=== PATIENT | female | born 1995 | race Caucasian/White ===

== ENCOUNTER 2022-09-23 10:57 | Day surgery (SDC) | payer MEDICAID, SELFPAY ==
[2022-09-23] VITALS (9 sets, daily range): BP systolic 90–116; BP diastolic 63–75; PULSE 60–85; RESP 15–18; TEMP 36.1–36.6; O2SAT 97–100; BMI 24.5
--- NOTE | 2022-09-23 | POC_PTH ---
PATIENT: JUAN MANUEL RUST LOC: [facility] – [place] U#:[id number] AGE/SX: 27/F ROOM: RE09/23/[address]: Dr. Geovani Rocha MD : 1995 BED: DIS: 09/23/2022 SPEC #: [id number] RECD: 09/23/22 14:24 STATUS: SCHUYLER RESaud #: [id number] MACY: 09/23/22 00:[address]: Geovani Rocha DEPT: SURGICAL PATHOLOGY RECD BY: Soy Manjarrez ENTERED: 09/24/22 09:09 SP TYPE: PROD CONC OTHR DR: No Primary Care Phys Tissues: Product of conception, NOS Procedures: Surgery Specimen Level IV HEADER OPERATION: Suction dilation and curettage PRE-OP DIAGNOSIS: Missed TISSUE SUBMITTED: Products of conception MICROSCOPIC DIAGNOSIS Endometrium, curettage: Chorionic villi, decidualized stroma and trophoblastic cells consistent with products of conception. AM:matthew 09/25/2022 MICROSCOPIC DESCRIPTION Slides are reviewed. GROSS DESCRIPTION Received in fixative is one container labeled with the patient's name and designated products of conception. The specimen consists of multiple irregular fragments of pink soft tissue that in aggregate measure 7 x 7 x 2 cm. No tissue is identified. Manufacturer'S Service Representative tissue is submitted in two cassettes. / SJ:rg 09/24/2022 TC:5 CPT:
--- NOTE | 2022-09-23 11:24 | PCM.HP.BLA ---
History and Physical Date of Admission: 09/23/22 Chief complaint: Missed History present illness: 27-year-old arrives for suction dilation curettage for missed . No medical changes. All questions answered and consent signed Obstetric history: G2, P1 with a history of 1 vaginal delivery and as above 1 missed Past medical history: None Medications: None Past surgical history: None Allergies: No known drug allergies Social history: Denies smoking, alcohol, drug use Family history: Denies history DVT or PE Review of systems: Besides above pertinent positives a full review of systems was performed and found to be negative Physical exam: Vitals: Pending General: Normal-appearing no acute distress HEENT: Normocephalic/atraumatic no cervical lymphadenopathy Cardiac/respiratory: No use accessory muscles, nonlabored breathing Abdomen: Soft, nontender, nondistended Extremities: No peripheral edema normal peripheral pulses Psych: Normal affect normal demeanor nonpressured speech Assessment plan: 19-year-old arrives for suction dilation curettage for missed . Patient or stands risk of the procedure include but are not limited to visceral or vascular injury, prolonged hospitalization, blood loss and need for transfusion, reoperation. Patient state understanding wish to proceed. All questions were answered and consent was signed.
[2022-09-23 11:41] LABS: Hematocrit 37.8 % (37-47); Hemoglobin 12.3 g/dL (12.0-15.0); Mean Corp Hgb Conc 32.5 g/dL (32-36); Mean Corpuscular Hgb 30.1 pg (27.0-32.0); Mean Corpuscular Volume 92.6 fL (81-99); Mean Platelet Vol. 9.7 fl (6.2-12.0); Platelet Count 227 K/mm3 (150-450); RBC Distribution Width CV 13.2 % (11.6-14.6); RBC Distribution Width SD 44.8 fl (35.1-43.9); Red Blood Count 4.08 M/mm3 (4.2-5.4); White Blood Count 8.2 K/mm3 (4.4-11.0)
[2022-09-23] MEDS: Lactated Ringers 1,000 ML 15 ML IV (11:46)
--- NOTE | 2022-09-23 12:54 | DCINST_ITS ---
Discharge Instructions Diet Discharge Diet: No restrictions Activity Discharge Activity: Return to Normal Activity and May Shower May resume sexual activity in: 4-6 weeks Weight Bearing Status: Weight bearing as tolerated Dressing / Incision Call your doctor if your incision/area has: Continuous Slow Oozing and Foul Smelling Discharge Call your doctor if you observe: Fever of 101 or Higher, Shortness of breath and Chest pain Follow Up Care Please Follow Up With: Geovani Rocha MD When: 2 weeks postoperatively Test Results: Test results from this visit will be discussed in further detail at your follow- up appointment, if applicable. Discharge Plan Admission Attending Provider: Geovani Rocha Primary Care Provider: Care Physician,Eloisa Primary Discharge Orders/Prescriptions Prescriptions: No Action NK Referrals / Follow Up: Care Physician,No Primary [Primary Care Provider] - Disposition Disposition (needs filled in before D/C Order can be placed): Home, Self Care
--- NOTE | 2022-09-23 12:55 | OP.PCM_ITS ---
Report of Operation Date of Procedure: 09/23/22 Pre-Operative Diagnosis: Missed Post-Operative Diagnosis: Missed Surgery/Procedure Performed:: Suction dilation and curettage Description of Surgical Findings:: Surgeon: Geovani Rocha MD Anesthesia: MAC EBL: 25 cc Urine output: 200 cc IV fluids: 500 cc none complications: None Specimen: Products of conception Findings: Cervix with no dilation and no bleeding. 7 mm suction curettage used Consent: Patient with missed elects for suction dilation and curettage. Patient understands risk of the procedure include but are not limited to visceral or vascular injury, prolonged hospitalization, blood loss need for transfusion, reoperation. Patient state understanding wish to proceed. All questions were answered and consent was signed. Procedure: Patient was brought back to the OR where MAC anesthesia was found to be adequate. 200 mg of doxycycline were given for infection prophylaxis. Patient was prepared and draped in a dorsolithotomy position with yellowfin stirrups. Weighted speculum was placed in the posterior aspect of vagina and cervical dilators were used to dilate the cervix. 7 mm curved suction curettage was used under direct visualization. Sharp endometrial curettage was lightly performed in all quadrants. Good hemostasis was noted. All counts were correct x2. Patient tolerated procedure well and was brought to recovery in stable co ndition.
--- NOTE | 2022-09-23 13:02 | SUR.PHASEI ---
PT ATTEMPTED TO VOID IN PACU ON BED SCHROEDER, NO URINE PRESENT IN BED SCHROEDER. PT WAS CATHETERIZED IN SURGERY, EDUCATED PT SHE MAY HAVE THAT URGE SENSATION FOR A LITTLE BIT TODAY.
== END 2022-09-23 14:06 | disposition home or self-care (01) ==
LOC: SDC 11:01 → AC 11:03
PROVIDERS: Referring Provider Obstetrics & Gynecology; Visit Provider Obstetrics & Gynecology
PROC: (CPT 59820; principal; 2022-09-23 12:10)
DX: O02.1 Missed abortion (principal)
CPT/HCPCS: 59820; 01965; 85027; 86850; 86900; 86901; 88305; J7120; J2405